=== PATIENT | male | born 1990 | race Caucasian/White ===

== ENCOUNTER 2018-10-11 12:33 | Emergency (ER) | payer MEDICAID ==
[~2018-10-11] VITALS: Ht 175.3 cm; Wt 81.6 kg
[2018-10-11 12:40] VITALS: BP 133/62
--- NOTE | 2018-10-11 12:45 | NUR ---
ED Nurse Note: Patient walked into ED c/o testicular pain 8/10 sharp pain. patient denies any injury/swelling. patient is alert awake x4 ambulatory, breathing unlabored and even.
[2018-10-11] MEDS ORDERED: GABAPENTIN100 MG ORAL (12:47)
[2018-10-11] MEDS ORDERED: Ketorolac 30mg Inj IM ONE (13:00)
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
[2018-10-11] MEDS ORDERED: IBUPROFEN600 MG ORAL (14:29)
--- NOTE | 2018-10-11 14:35 | NUR ---
ED Nurse Note: per PA, it is ok to discharge without urine.
[2018-10-11 14:36] VITALS: BP 127/71
--- NOTE | 2018-10-11 14:36 | NUR ---
ER DISCHARGE NOTE: Patient is cleared to be discharged per ERMD, pt is aox4, on room air, with stable vital signs. pt was given dc and prescription instructions, pt was able to verbalize understanding, pt id ban removed without complications. pt is able to ambulate with steady gait. pt took all belongings.
--- NOTE | 2018-10-11 14:44 | Diagnostic Imaging Report ---
Indication:Scrotal pain Technique: Real time grayscale and duplex Doppler imaging of the scrotum performed. Comparison: None Findings: The size, contour, and echogenicitiy of the testis appear normal bilaterally. There is no testicular mass or evidence of torsion. There is good doppler evidence of blood flow within both testes. Epididimi are unremarkable. Right testis measures 4.4 x 2.5 x 3.5 cm. Left testis 3.9 x 2.2 x 3 cm. Impression: Negative scrotal ultrasound
== END 2018-10-11 14:37 | disposition home or self-care (01) ==
LOC: EMR 13:40
DX: N43.3 Hydrocele, unspecified (principal); N50.82 Scrotal pain
CPT/HCPCS: 76870; 96372; 99284; J1885